=== PATIENT | male | born 1995 | race Hispanic/Latino ===

== ENCOUNTER 2021-10-03 19:36 | Inpatient (IN) | payer OTHER ==
[~2021-10-03] VITALS: Ht 180.3 cm; Wt 84.1 kg
[2021-10-03] MEDS ORDERED: KETOROLAC 15MG/ML VIAL (15MG/ML) IV ONE (20:00)
[2021-10-03] MEDS ORDERED: MORPHINE 4 MG SYG IVP ONE (20:00)
[2021-10-03] MEDS ORDERED: ONDANSETRON 4MG INJ IVP ONE (20:00)
[2021-10-03 20:10] LABS: APPEARANCE,URINE CLEAR (CLEAR); BASOPHILS % (AUTO) 0.2 % (0.0-5.0); BILIRUBIN,URINE NEGATIVE (NEGATIVE); COLOR,URINE YELLOW (YELLOW); EOSINOPHILS % (AUTO) 0.2 % (0.0-8.0); GLUCOSE, URINE (UA) NEGATIVE (NEGATIVE); HEMATOCRIT 43.2 % (42-54); KETONES,URINE 5 mg/dL (NEGATIVE); LEUKOCYTE ESTERASE ,URINE NEGATIVE (NEGATIVE); MEAN CORPUSCULAR HEMOGLOBIN 30.4 pg (27.0-33.0); MEAN CORPUSCULAR HGB CONC 34.3 g/dL (32.0-36.0); MEAN CORPUSCULAR VOLUME 88.7 fL (79-99); MONOCYTES % (AUTO) 6.9 % (3.0-13.0); NEUTROPHILS % (AUTO) 78.2 % (40.0-77.0); NITRATE,URINE NEGATIVE (NEGATIVE); OCCULT BLOOD,URINE TRACE-INTACT (NEGATIVE); PLATELET COUNT (AUTO) 217 K/uL (130-400); PROTEIN,URINE NEGATIVE (NEGATIVE); RED BLOOD CELL COUNT(AUTO) 4.87 MIL/uL (4.50-6.20); RED CELL DISTRIBUTION WIDTH 12.9 % (11.0-15.5); WHITE BLOOD COUNT (AUTO) 12.8 K/uL (4.8-10.8)
[2021-10-03 20:26] LABS: CREATININE 0.9 mg/dL (0.5-1.5); POTASSIUM 4.1 mmol/L (3.5-5.1)
[2021-10-03 20:31] LABS: ALBUMIN 4.6 g/dL (3.5-5.0); TOTAL PROTEIN, SERUM 8.2 g/dL (6.0-8.3)
[2021-10-03 20:34] LABS: BACTERIA,URINE Few /HPF (None Seen); MUCUS,URINE Few LPF (None Seen); SQUAMOUS EPITHELIAL CELL,UR Few /HPF (0-2)
[2021-10-03] MEDS ORDERED: MORPHINE 2 MG SYG IVP ONE (21:30)
[2021-10-03] MEDS ORDERED: IOHEXOL-350 75 ML VIAL IV ONE (21:59)
[2021-10-04] MEDS ORDERED: MAG/ALUM/SIMETH 30 ML UDCUP PO PRN
[2021-10-04] MEDS ORDERED: HYDROCODONE/ACETAMINOPHEN 5/325 MG TAB PO PRN
[2021-10-04] MEDS ORDERED: ONDANSETRON 4MG INJ IV PRN
[2021-10-04] MEDS ORDERED: LACTULOSE 20 GM/30 ML UDCUP PO PRN
[2021-10-04] MEDS ORDERED: ACETAMINOPHEN 325 MG TAB PO PRN
[2021-10-04] MEDS: 0.9%NACL 1000ML 1,000 ML IV SCH ×3 (00:09→22:03)
[2021-10-04 02:10] LABS: AMPHET/METH SCREEN,URINE NEGATIVE (NEGATIVE); BARBITURATE SCREEN, URINE NEGATIVE (NEGATIVE); BENZODIAZEPINES SCREEN,URINE NEGATIVE (NEGATIVE); CANNABINOID SCREEN,URINE POSITIVE (NEGATIVE); COCAINE SCREEN,URINE POSITIVE (NEGATIVE); OPIATE SCREEN,URINE NEGATIVE (NEGATIVE); PHENCYCLIDINE SCREEN,URINE NEGATIVE (NEGATIVE)
[2021-10-04 02:47] VITALS: BP 131/81
[2021-10-04] MEDS: MORPHINE 2 MG SYG IVP PRN ×3 (02:58→19:56)
[2021-10-04 07:00] VITALS: BP 126/81
[2021-10-04] MEDS: FAMOTIDINE 20MG VIAL IV SCH ×2 (10:06→22:04)
[2021-10-04 10:45] VITALS: BP 130/87
[2021-10-04 15:00] VITALS: BP 140/80
[2021-10-04 20:46] VITALS: BP 147/76
[2021-10-05] VITALS (18 sets, daily range): BP systolic 85–155; BP diastolic 33–82
[2021-10-05] MEDS: 0.9%NACL 1000ML 1,000 ML IV SCH (02:52)
[2021-10-05] MEDS: MORPHINE 2 MG SYG IVP PRN ×3 (03:20→19:38)
[2021-10-05 06:27] LABS: HEMATOCRIT 25.4 % (42-54); MEAN CORPUSCULAR HEMOGLOBIN 30.3 pg (27.0-33.0); MEAN CORPUSCULAR HGB CONC 34.3 g/dL (32.0-36.0); MEAN CORPUSCULAR VOLUME 88.5 fL (79-99); RED BLOOD CELL COUNT(AUTO) 2.87 MIL/uL (4.50-6.20); RED CELL DISTRIBUTION WIDTH 12.7 % (11.0-15.5); WHITE BLOOD COUNT (AUTO) 10.5 K/uL (4.8-10.8)
[2021-10-05 06:38] LABS: CREATININE 0.9 mg/dL (0.5-1.5); POTASSIUM 3.7 mmol/L (3.5-5.1)
[2021-10-05 08:21] LABS: CRP QUANTITATIVE 122.8 mg/L (0.00-9.0)
[2021-10-05 08:58] LABS: % IRON SATURATION 7.2 % (30-44)
[2021-10-05] MEDS: FAMOTIDINE 20MG VIAL IV SCH ×2 (10:01→21:13)
[2021-10-05] MEDS ORDERED: PROPOFOL 10 MG/ML 20ML VIAL IV ONE (12:19)
[2021-10-05] MEDS ORDERED: PROPOFOL 1000 MG/100 ML 0 ML IV ONE (12:26)
[2021-10-05] MEDS ORDERED: PROPOFOL 1000 MG/100 ML 100 ML IV ONE (12:53)
[2021-10-05] MEDS ORDERED: PHENYLEPHRINE HCL 10 MG/ML 1ML VIAL IV ONE (12:53)
[2021-10-06] VITALS: BP 128/61
[2021-10-06] MEDS: 0.9%NACL 1000ML 1,000 ML IV SCH ×2 (01:43→13:02)
[2021-10-06 04:00] VITALS: BP 119/65
[2021-10-06 05:16] LABS: BASOPHILS % (AUTO) 0.2 % (0.0-5.0); EOSINOPHILS % (AUTO) 1.1 % (0.0-8.0); LYMPHOCYTES % (AUTO) 25.6 % (21.0-51.0); MEAN CORPUSCULAR HEMOGLOBIN 29.9 pg (27.0-33.0); MEAN CORPUSCULAR HGB CONC 33.8 g/dL (32.0-36.0); MEAN CORPUSCULAR VOLUME 88.6 fL (79-99); MONOCYTES % (AUTO) 7.7 % (3.0-13.0); PLATELET COUNT (AUTO) 172 K/uL (130-400); RED BLOOD CELL COUNT(AUTO) 2.71 MIL/uL (4.50-6.20); RED CELL DISTRIBUTION WIDTH 12.6 % (11.0-15.5); WHITE BLOOD COUNT (AUTO) 8.4 K/uL (4.8-10.8)
[2021-10-06 05:23] LABS: CREATININE 0.8 mg/dL (0.5-1.5); POTASSIUM 3.7 mmol/L (3.5-5.1)
[2021-10-06 05:32] LABS: INR 0.99 (0.85-1.15); PROTHROMBIN TIME 10.8 SEC (9.6-11.6)
[2021-10-06 05:33] LABS: PARTIAL THROMBOPLASTIN TIME 27.4 SEC (26.3-35.5)
[2021-10-06 08:40] VITALS: BP 135/71
[2021-10-06] MEDS: FAMOTIDINE 20MG VIAL IV SCH (09:03)
[2021-10-06 11:57] VITALS: BP 137/86
[2021-10-06 13:21] LABS: APPEARANCE BODY FLUID TURBID (CLEAR); COLOR,BODY FLUID RED (LT YELLOW); SPECIMENTYPE,BODY FLUID ASCITES; TOTAL VOLUME,BODY FLUID 450 mL
[2021-10-06 13:59] LABS: BF LYMPHOCYTE 11 %; BF MESOTHELIAL 22 %
[2021-10-06 14:22] LABS: BODY FLUID RBC 441250 /cu. mm.; BODY FLUID WBC 2125 /cu. mm.
[2021-10-06] MEDS ORDERED: LIDOCAINE HCL 1% MDV 50ML VIAL ONE (14:34)
== END 2021-10-06 16:57 | disposition home or self-care (01) | DRG 392 ==
LOC: EDBD 19:36 → EDH 19:36 → EDHIP 19:37 → 3CH 10-04 02:30
PROVIDERS: ADMIT Hospitalist; ATTEND Hospitalist
PROC: 0DB68ZX Excision of Stomach, Via Natural or Artificial Opening Endoscopic, Diagnostic (ICD-10-PCS; principal; 2021-10-05)
PROC: 0W9G3ZZ Drainage of Peritoneal Cavity, Percutaneous Approach (ICD-10-PCS; 2021-10-06)
DX: K31.89 Other diseases of stomach and duodenum (principal); R18.8 Other ascites; D50.9 Iron deficiency anemia, unspecified; K44.9 Diaphragmatic hernia without obstruction or gangrene; F12.90 Cannabis use, unspecified, uncomplicated; Z20.822 Contact with and (suspected) exposure to COVID-19
CPT/HCPCS: 36415; 43232; 43235; 49083; 74177; 76705; 80048; 80053; 80305; 81001; 82042; 82607; 83540; 83550; 83690; 84157; 85025; 85027; 85610; 85730; 86140; 86304; 86316; 87040; 87071; 87088; 87205; 87635; 89051; A4606; C1729; G0378; J1885; J2270; J2370; J2405; J2704; J3490; J7030; Q9967

== ENCOUNTER 2021-10-20 14:59 | Emergency (ER) | payer OTHER ==
[~2021-10-20] VITALS: Ht 180.3 cm; Wt 83.9 kg
[2021-10-20 15:36] LABS: BASOPHILS % (AUTO) 0.3 % (0.0-5.0); EOSINOPHILS % (AUTO) 1.8 % (0.0-8.0); HEMATOCRIT 35.2 % (42-54); LYMPHOCYTES % (AUTO) 25.5 % (21.0-51.0); MEAN CORPUSCULAR HEMOGLOBIN 29.3 pg (27.0-33.0); MEAN CORPUSCULAR HGB CONC 31.8 g/dL (32.0-36.0); MEAN CORPUSCULAR VOLUME 92.1 fL (79-99); MONOCYTES % (AUTO) 7.1 % (3.0-13.0); NEUTROPHILS % (AUTO) 64.6 % (40.0-77.0); PLATELET COUNT (AUTO) 471 K/uL (130-400); RED BLOOD CELL COUNT(AUTO) 3.82 MIL/uL (4.50-6.20); RED CELL DISTRIBUTION WIDTH 13.7 % (11.0-15.5); WHITE BLOOD COUNT (AUTO) 7.6 K/uL (4.8-10.8)
[2021-10-20 15:40] LABS: APPEARANCE,URINE Clear (CLEAR); BILIRUBIN,URINE Negative (NEGATIVE); COLOR,URINE Yellow (YELLOW); GLUCOSE, URINE (UA) Negative (NEGATIVE); KETONES,URINE Trace mg/dL (NEGATIVE); LEUKOCYTE ESTERASE ,URINE Small (NEGATIVE); NITRATE,URINE Negative (NEGATIVE); OCCULT BLOOD,URINE Negative (NEGATIVE); PH,URINE 5.5 (5.0-8.0); PROTEIN,URINE Negative (NEGATIVE)
[2021-10-20 15:43] LABS: CREATININE 0.8 mg/dL (0.5-1.5); POTASSIUM 4.1 mmol/L (3.5-5.1)
[2021-10-20 15:46] LABS: AMPHET/METH SCREEN,URINE NEGATIVE (NEGATIVE); BARBITURATE SCREEN, URINE NEGATIVE (NEGATIVE); BENZODIAZEPINES SCREEN,URINE POSITIVE (NEGATIVE); CANNABINOID SCREEN,URINE POSITIVE (NEGATIVE); COCAINE SCREEN,URINE NEGATIVE (NEGATIVE); OPIATE SCREEN,URINE NEGATIVE (NEGATIVE); PHENCYCLIDINE SCREEN,URINE NEGATIVE (NEGATIVE)
[2021-10-20 15:48] LABS: TOTAL PROTEIN, SERUM 7.6 g/dL (6.0-8.3)
[2021-10-20 16:19] LABS: BACTERIA,URINE Few /HPF (None Seen); MUCUS,URINE Rare LPF (None Seen); RBC,URINE 0-1 /HPF (0-1); SQUAMOUS EPITHELIAL CELL,UR Rare /HPF (0-2)
[2021-10-20 16:48] VITALS: BP 108/50
== END 2021-10-20 16:48 | disposition home or self-care (01) ==
LOC: EDH 14:59
DX: K31.9 Disease of stomach and duodenum, unspecified (principal); D64.9 Anemia, unspecified; F12.90 Cannabis use, unspecified, uncomplicated; R18.8 Other ascites
CPT/HCPCS: 36415; 80053; 80305; 81001; 85025; 87088